=== PATIENT | female | born 1985 | race Caucasian/White ===

== ENCOUNTER 2018-09-15 06:21 | Inpatient (IN) | payer BC ==
[2018-09-15] MEDS ORDERED: Famotidine IV* 10 MG/ML 2 ML (20 mg) IV ONE (06:25)
[2018-09-15] MEDS ORDERED: Sodium Citrate/Citric Acid* 15 ML UDC PO ONE (06:25)
[2018-09-15] MEDS ORDERED: Buffered Lidocaine 1% SYRIN* 1 ML/SYRINGE INTRADERM ONE (06:25)
[2018-09-15] MEDS ORDERED: Lidocaine 1%* 5 ML VIAL ONE (06:28)
[2018-09-15] MEDS ORDERED: ceFOXitin 2 GM IVPREMIX* 2 GM/50 ML BAG ONE (06:48)
[2018-09-15] MEDS ORDERED: Lactated Ringers 1000 ML Bag* 1,000 ML IV SCH ×2 (07:00→10:00)
[2018-09-15] MEDS ORDERED: Bupivacaine-MPF SPINAL* 7.5 MG/ML - 2ML AMP ONE (07:37)
[2018-09-15] MEDS ORDERED: fentaNYL* 50 MCG/ML 2 ML VIAL (100 MCG VIAL) ONE (07:38)
[2018-09-15] MEDS ORDERED: Phenylephrine INJ* 10 MG/ML 1 ML VIAL (10 MG) ONE (07:38)
[2018-09-15] MEDS ORDERED: Morphine PF AMP (0.5MG/ML)* 5 MG/10 ML AMP ONE (07:38)
[2018-09-15] MEDS ORDERED: Ondansetron INJ* 2 MG/ML VIAL ONE (07:38)
[2018-09-15] MEDS ORDERED: Lidocaine 2% PF * 5 ML VIAL ONE (07:44)
[2018-09-15] MEDS ORDERED: OXYTOCIN* 10 UNITS/ML 1 ML VIAL ONE (08:32)
[2018-09-15] MEDS ORDERED: Metoclopramide IV* 5 MG/ML 2 ML VIAL ONE (08:55)
[2018-09-15] MEDS ORDERED: EPHEDrine (Pressors)* 50 MG/ML VIAL ONE (08:55)
[2018-09-15] MEDS ORDERED: Dexamethasone IV* 4 MG/ML 1 ML (4 MG) ONE (09:05)
[2018-09-15] MEDS ORDERED: Ketorolac INJ* 30 MG/ML 1 ML VIAL ONE (09:10)
[2018-09-15] MEDS ORDERED: Ondansetron INJ* 2 MG/ML VIAL IV PRN (09:19)
[2018-09-15] MEDS ORDERED: Acetaminophen TAB* 325 MG PO PRN ×2 (09:19→09:42)
[2018-09-15] MEDS ORDERED: Metoclopramide IV* 5 MG/ML 2 ML VIAL IV PRN (09:19)
[2018-09-15] MEDS ORDERED: Naloxone* 0.4 MG/ML 1 ML VIAL IV PRN ×2 (09:19→09:39)
[2018-09-15] MEDS ORDERED: diPHENhydraMINE IV* 50 MG/ML 1 ml VIAL (BENADRYL) IV PRN (09:19)
[2018-09-15] MEDS ORDERED: oxyCODONE TAB* 5 MG TAB PO PRN (09:19)
[2018-09-15] MEDS ORDERED: fentaNYL* 50 MCG/ML 2 ML VIAL (100 MCG VIAL) IV PRN (09:39)
[2018-09-15] MEDS ORDERED: Witch Hazel PAD* JAR TOPICAL PRN (09:42)
[2018-09-15] MEDS ORDERED: oxyCODONE/Acetamin 5/325 MG* TAB PO PRN ×2 (09:42)
--- NOTE | 2018-09-15 13:00 | OP ---
DATE OF OPERATION: 09/15/18 - ROOM #116 DATE OF : 83 SURGEON: Jyotsna Ruiz MD INSULATION HOSEMAN: Celia David CNM ANESTHESIOLOGIST: Dr. Howard. ANESTHESIA: Spinal. PRE-OP DIAGNOSIS: Thirty-nine weeks gestation with history of previous fourth- degree laceration. POST-OP DIAGNOSIS: Thirty-nine weeks gestation with history of previous fourth- degree laceration. OPERATIVE PROCEDURE: Primary low transverse section. ESTIMATED BLOOD LOSS: 900 cc. URINE OUTPUT: 100 cc. IV FLUIDS: 2500 cc lactated Ringer's. MATERIALS TO LAB: Cord blood. INDICATIONS: This patient is a 33-year-old 2, para 1 at 39 plus 0 weeks gestation who presented today for her scheduled section. Her last delivery was complicated by a severe fourth-degree perineal laceration, which resulted in extremely difficult healing. This time, she elected to have a section to avoid this recurrence. She was extensively counseled for this surgery and consent was signed. FINDINGS: Normal-appearing uterus, fallopian tubes, and ovaries. Delivery was productive of a 9 pound 8 ounce male infant with Apgars of 9 and 9. Time of delivery was 0836. COMPLICATIONS: None. DESCRIPTION OF PROCEDURE: The risks, benefits, and alternatives were described to the patient and informed consent was obtained. The patient was taken to the operating room with IV running where spinal anesthesia was induced and found to be adequate. The patient was prepped and draped in the normal sterile fashion in the dorsal supine position with leftward tilt. A Pfannenstiel skin incision was made with a scalpel and this was carried down to the underlying fascia sharply. The fascia was then scored in the midline with the scalpel. The incision was extended using Conde scissors. The rectus muscles were dissected off the rectus fascia using blunt and sharp dissection. The rectus muscles were in the midline bluntly. The peritoneum was also entered bluntly. A bladder blade was placed. A bladder flap was created sharply using Metzenbaum scissors. A low transverse uterine incision was made with the scalpel. This was carried down to the amniotic cavity which was productive of clear fluid. The incision was extended with blunt traction. The head was elevated to the level of the incision without difficulty and delivered through the incision. With fundal pressure, the shoulders and body delivered without difficulty. The had an excellent tone and cried immediately on delivery. The cord was doubly clamped and cut. The was then handed to the awaiting filler block inserter remover. Cord blood was collected. The placenta then delivered with manual extraction. The uterus was then exteriorized and cleared of all clots and debris. Uterine incision was reapproximated using 0 Polysorb in a running-locked fashion. A second layer of imbricating sutures of 0 Polysorb was also placed with good hemostasis. The posterior cul-de-sac was irrigated with saline. The uterus was then returned to the abdomen, and the incision was reinspected and noted to be hemostatic. The peritoneum was closed with 2-0 chromic in a running fashion. The fascia was closed with 0 Polysorb in a running fashion. Subcutaneous tissues were reapproximated using 2-0 chromic and interrupted sutures. The skin was then closed with 4-0 Monocryl in a subcuticular stitch. Mastisol and Steri-Strips were placed over the incision which was then covered with a sterile bandage. The patient tolerated the procedure well. Sponge, lap, and needle counts were correct x2. [id number] #: [id number] MTDD
[2018-09-15] MEDS: Simethicone TAB* 80 MG TAB.CHEW PO SCH ×3 (14:08→20:39)
[2018-09-15] MEDS: Docusate CAP* 100 MG PO SCH ×2 (14:08→20:39)
[2018-09-15] MEDS: Ketorolac INJ* 30 MG/ML 1 ML VIAL IV PRN ×2 (15:10→20:39)
[2018-09-16] MEDS ORDERED: Acetaminophen TAB* 325 MG PO PRN (01:00)
[2018-09-16] MEDS: Ketorolac INJ* 30 MG/ML 1 ML VIAL IV PRN (05:09)
[2018-09-16 06:13] LABS: ABS Basophils 0.1 10^3/ul (0-0.2); ABS Eosinophils 0.1 10^3/ul (0-0.6); ABS Lymphocytes 2.6 10^3/ul (1.0-4.8); ABS Monocytes 1.4 10^3/ul (0-0.8); ABS Neutrophils 12.8 10^3/ul (1.5-7.7); ABS Nucleated RBC 0 10^3/ul; Eosinophil % 0.3 %; Hematocrit 29 % (35-47); Hemoglobin 9.6 g/dl (12.0-16.0); Lymphocyte % 15.2 %; Mean Corpuscular HGB Conc 34 g/dl (31-36); Mean Corpuscular Hemoglobin 31 pg (27-31); Mean Corpuscular Volume 93 fL (80-97); Nucleated Red Blood Cells % 0; Platelet Count 171 10^3/ul (150-450); Red Blood Count 3.09 10^6/ul (4.00-5.40); Red Cell Distribution Width 14 % (10.5-15); White Blood Count 16.8 10^3/ul (3.5-10.8)
[2018-09-16] MEDS: Ferrous Gluconate TAB* 324 MG TAB PO SCH ×2 (08:39→21:02)
[2018-09-16] MEDS: Simethicone TAB* 80 MG TAB.CHEW PO SCH ×4 (08:39→21:03)
[2018-09-16] MEDS: Docusate CAP* 100 MG PO SCH ×3 (08:40→21:02)
[2018-09-16] MEDS: oxyCODONE/Acetamin 5/325 MG* TAB PO PRN ×4 (08:40→22:28)
[2018-09-16] MEDS: Ibuprofen TAB* 600 MG PO PRN ×2 (12:07→18:30)
[2018-09-17] MEDS: Ibuprofen TAB* 600 MG PO PRN ×4 (00:34→18:22)
[2018-09-17] MEDS: oxyCODONE/Acetamin 5/325 MG* TAB PO PRN ×5 (02:33→20:32)
[2018-09-17] MEDS: Ferrous Gluconate TAB* 324 MG TAB PO SCH ×2 (08:14→20:32)
[2018-09-17] MEDS: Simethicone TAB* 80 MG TAB.CHEW PO SCH ×4 (08:14→20:32)
[2018-09-17] MEDS: Docusate CAP* 100 MG PO SCH ×3 (08:14→20:31)
[2018-09-17 20:45] VITALS: BP 98/52
[2018-09-18] MEDS: oxyCODONE/Acetamin 5/325 MG* TAB PO PRN ×2 (01:12→09:18)
[2018-09-18] MEDS: Ibuprofen TAB* 600 MG PO PRN ×2 (01:13→09:18)
[2018-09-18] MEDS: Docusate CAP* 100 MG PO SCH (09:17)
[2018-09-18] MEDS: Simethicone TAB* 80 MG TAB.CHEW PO SCH (09:18)
[2018-09-18] MEDS: Ferrous Gluconate TAB* 324 MG TAB PO SCH (09:18)
== END 2018-09-18 12:11 | disposition home or self-care (01) | DRG 540 ==
LOC: MCHOB 06:21
PROVIDERS: ADMIT Obstetrics & Gynecology; ATTEND Obstetrics & Gynecology
PROC: 4A1HXCZ Monitoring of Products of Conception, Cardiac Rate, External Approach (ICD-10-PCS; 2018-09-15)
PROC: 10D00Z1 Extraction of Products of Conception, Low, Open Approach (ICD-10-PCS; principal; 2018-09-15 07:45)
DX: O90.81 Anemia of the puerperium (principal); Z3A.39 39 weeks gestation of pregnancy; Z37.0 Single live birth
CPT/HCPCS: 36415; 85025; A9270-GY; J0694; J1100; J1885; J2405; J2590; J2765; J3010